=== PATIENT | female | born 1950 ===

== ENCOUNTER 2021-06-13 19:54 | Inpatient (IN) | payer OTHER ==
[~2021-06-13] VITALS: Ht 160 cm; Wt 97.5 kg
--- NOTE | 2021-06-13 20:02 | NUR ---
EKG DONE IN TRIAGE.
[2021-06-13] MEDS ORDERED: LISI-170 PO (20:37)
[2021-06-13 20:47] LABS: BASOPHILS % (AUTO) 1 % (0-1); EOSINOPHILS % (AUTO) 1 % (1-7); LYMPHOCYTES % (AUTO) 41 % (22-44); MEAN CORPUSCULAR HEMOGLOBIN 29.3 pg (27.0-34.8); MEAN CORPUSCULAR HGB CONC 34.2 g/dL (32.4-35.8); MEAN PLATELET VOLUME 7.9 fL (7.4-10.4); MONOCYTES % (AUTO) 15 % (2-9); NEUTROPHILS % (AUTO) 42 % (42-75); PLATELET COUNT 233 x10^3/uL (130-400); RED BLOOD COUNT 5.24 x10^6/uL (3.82-5.3)
--- NOTE | 2021-06-13 20:49 | NUR ---
PATIENT REPORTS CENTER CHEST PAIN THAT COMES AND GOES SINCE 10 AM TOADY. VS STABLE. MOUNTER CLARINETS ON. NSR NOTED. CALL LIGHT IN PLACE. WILL CONTINUE TO MONITOR.
[2021-06-13 20:56] LABS: ALANINE AMINOTRANSFERASE 49 U/L (12-78); ALBUMIN 3.5 g/dL (3.4-5.0); ANION GAP 7 mmol/L (5-15); CALCIUM 8.7 mg/dL (8.5-10.1); CHLORIDE 105 mmol/L (98-107); CREATININE 0.81 mg/dL (0.55-1.02)
[2021-06-13 21:00] LABS: ALKALINE PHOSPHATASE 127 U/L (45-117); BILIRUBIN,TOTAL 0.7 mg/dL (0.2-1.0); TOTAL PROTEIN 6.7 g/dL (6.4-8.2); TROPONIN I 0.073 ng/mL (0.000-0.045)
--- NOTE | 2021-06-13 21:54 | NUR ---
DR TAYLOR HAS UPDATED PATIENT. PT TO BE AN ADMIT.
[2021-06-13] MEDS ORDERED: NITROGLYCERIN 0.4 MG/SPRAY SL PRN (22:30)
[2021-06-13] MEDS ORDERED: morphine SULFATE 10 MG/ML, 1ML IV PRN (22:30)
[2021-06-13] MEDS ORDERED: morphine SULFATE 10 MG/ML, 1ML IVPush PRN (22:30)
[2021-06-13] MEDS ORDERED: BISACODYL 5 MG EC TABLET PO PRN (22:30)
[2021-06-13] MEDS ORDERED: ONDANSETRON 2MG/ML, 2ML IV PRN (22:30)
[2021-06-13] MEDS ORDERED: NITROGLYCERIN 0.4 MG BOTTLE (25 TABS) SL PRN (22:30)
--- NOTE | 2021-06-13 22:42 | NUR ---
PT HAS BEEN SEEN BY THE HOSPITALIST. PT RESTING IN ROOM. JOB PRINTER APPRENTICE ON. NSR NOTED. CALL LIGHT IN PLACE. WILL CONTINUE TO MONITOR .
--- NOTE | 2021-06-13 23:02 | NUR ---
PT REPORTS HER CHEST PAIN HAS RESOLVED. REPORT CALLED.
[2021-06-13 23:15] LABS: FREE T4 (FREE THYROXINE) 1.24 ng/dL (0.76-1.46)
[2021-06-13 23:17] VITALS: BP 137/87
[2021-06-14 01:34] LABS: TROPONIN I 0.112 ng/mL (0.000-0.045)
[2021-06-14] MEDS ORDERED: HEPARIN 5,000 UNITS/ML, 1ML IV ONE (02:00)
[2021-06-14] MEDS ORDERED: HEPARIN 5,000 UNITS/ML, 1ML IV PRN (02:00)
[2021-06-14] MEDS ORDERED: HEPARIN 25,000 UNITS/250ML PMX 250 ML IV PRN (02:00)
[2021-06-14 02:28] LABS: MEAN CORPUSCULAR HEMOGLOBIN 29.1 pg (27.0-34.8); MEAN CORPUSCULAR HGB CONC 34.1 g/dL (32.4-35.8); MEAN PLATELET VOLUME 8.2 fL (7.4-10.4); PLATELET COUNT 197 x10^3/uL (130-400); RED BLOOD COUNT 5.17 x10^6/uL (3.82-5.3); RED CELL DISTRIBUTION WIDTH 13.8 % (9.6-15.2)
[2021-06-14 02:29] LABS: ANION GAP 5 mmol/L (5-15); CALCIUM 8.6 mg/dL (8.5-10.1); CHLORIDE 107 mmol/L (98-107); CHOLESTEROL, TOTAL 174 mg/dL (140-239); CREATININE 0.62 mg/dL (0.55-1.02); TRIGLYCERIDES 91 mg/dL (50-200); VLDL CHOLESTEROL 18 mg/dL (0-25)
[2021-06-14 02:31] LABS: CHOL/HDL RATIO 3.5; HDL CHOL % 29 % (28-40); HDL CHOLESTEROL (DIRECT) 50 mg/dL (40-60); LDL CHOLESTEROL,CALCULATED 106 mg/dL (54-169); LDL/HDL RATIO 2.1 (0.5-3.0)
[2021-06-14 03:00] VITALS: BP 138/78
[2021-06-14] MEDS: ASPIRIN 81 MG TABLET EC PO SCH (05:20)
[2021-06-14 08:03] LABS: TROPONIN I 0.127 ng/mL (0.000-0.045)
[2021-06-14] MEDS: SODIUM CHLORIDE FLUSH 10ML SYR IVF SCH ×3 (08:08→22:08)
[2021-06-14 08:10] VITALS: BP 128/78
[2021-06-14 09:41] LABS: TROPONIN I 0.123 ng/mL (0.000-0.045)
[2021-06-14] MEDS: LISINOPRIL 20 MG TABLET PO SCH (11:29)
[2021-06-14] MEDS ORDERED: LEVO175T2 PO (11:33)
[2021-06-14] MEDS ORDERED: METF10007 PO (11:33)
[2021-06-14] MEDS ORDERED: ATOR20TA37 PO (11:33)
[2021-06-14] MEDS ORDERED: DEXTROSE 50%, 50ML SYRINGE IVPush PRN (14:00)
[2021-06-14] MEDS ORDERED: GLUCAGON 1 MG IM PRN (14:00)
[2021-06-14] MEDS ORDERED: DEXTROSE 4 GM TAB.CHEW PO PRN (14:00)
[2021-06-14 14:40] VITALS: BP 147/95
[2021-06-14] MEDS ORDERED: VERAPAMIL 2.5 MG/ML, 2ML ONE (15:19)
[2021-06-14] MEDS ORDERED: LIDOCAINE-MPF 1%, 5ML ONE (15:19)
[2021-06-14] MEDS ORDERED: MIDAZOLAM 1 MG/ML, 5ML ONE (15:19)
[2021-06-14] MEDS ORDERED: FENTANYL PF 100 MCG/2ML ONE (15:19)
[2021-06-14] MEDS ORDERED: TICAGRELOR 90 MG TABLET ONE (15:19)
[2021-06-14] MEDS ORDERED: BIVALIRUDIN 250 MG ONE (15:19)
[2021-06-14] MEDS ORDERED: HEPARIN 1,000 UNITS/ML, 10ML ONE (15:20)
[2021-06-14] MEDS: INSULIN LISPRO 100 UNITS/ML, PEN SQ-INSULIN SCH ×2 (15:59→20:16)
[2021-06-14] MEDS: CARVEDILOL 3.125 MG TABLET PO SCH (17:21)
[2021-06-14 19:30] VITALS: BP 122/80
[2021-06-14] MEDS ORDERED: ATORVASTATIN 80 MG TABLET PO SCH (21:00)
[2021-06-15 01:22] VITALS: BP 122/79
[2021-06-15] MEDS: ACETAMINOPHEN 325 MG TABLET PO PRN ×2 (01:22→10:31)
[2021-06-15 04:49] VITALS: BP 130/80
[2021-06-15] MEDS: ASPIRIN 81 MG TABLET EC PO SCH (04:50)
[2021-06-15] MEDS: CARVEDILOL 3.125 MG TABLET PO SCH (04:50)
[2021-06-15 05:17] LABS: BASOPHILS % (AUTO) 1 % (0-1); EOSINOPHILS % (AUTO) 3 % (1-7); LYMPHOCYTES % (AUTO) 34 % (22-44); MEAN CORPUSCULAR HEMOGLOBIN 29.7 pg (27.0-34.8); MEAN CORPUSCULAR HGB CONC 34.4 g/dL (32.4-35.8); MEAN PLATELET VOLUME 8.2 fL (7.4-10.4); MONOCYTES % (AUTO) 12 % (2-9); NEUTROPHILS % (AUTO) 50 % (42-75); PLATELET COUNT 218 x10^3/uL (130-400); RED BLOOD COUNT 5.19 x10^6/uL (3.82-5.3)
[2021-06-15 05:28] LABS: ANION GAP 5 mmol/L (5-15); CALCIUM 8.7 mg/dL (8.5-10.1); CHLORIDE 106 mmol/L (98-107)
[2021-06-15] MEDS ORDERED: LEVOTHYROXINE 175 MCG TABLET PO SCH (06:00)
[2021-06-15 06:58] VITALS: BP 117/76
[2021-06-15] MEDS: LISINOPRIL 20 MG TABLET PO SCH (08:12)
[2021-06-15] MEDS: SODIUM CHLORIDE FLUSH 10ML SYR IVF SCH ×2 (08:13)
[2021-06-15] MEDS: INSULIN LISPRO 100 UNITS/ML, PEN SQ-INSULIN SCH ×2 (08:16→11:14)
[2021-06-15] MEDS ORDERED: ASPI81TA45 PO (12:10)
[2021-06-15] MEDS ORDERED: ATOR40TA78 PO (12:10)
[2021-06-15] MEDS ORDERED: CARV3.1212 PO (12:10)
[2021-06-15] MEDS ORDERED: ATORVASTATIN 80 MG TABLET PO SCH (21:00)
== END 2021-06-15 13:30 | disposition home or self-care (01) | DRG 282 ==
LOC: ED 22:12 → INTOOBSV 22:33 → EDIP 22:33 → 5SO 23:06 → OBSVTOIN 06-14 13:26
PROVIDERS: ADMIT Internal Medicine; ATTEND Internal Medicine
PROC: 4A023N7 Measurement of Cardiac Sampling and Pressure, Left Heart, Percutaneous Approach (ICD-10-PCS; principal; 2021-06-14)
PROC: 5A1D70Z Performance of Urinary Filtration, Intermittent, Less than 6 Hours Per Day (ICD-10-PCS; 2021-06-14)
PROC: B2111ZZ Fluoroscopy of Multiple Coronary Arteries using Low Osmolar Contrast (ICD-10-PCS; 2021-06-14)
PROC: B2151ZZ Fluoroscopy of Left Heart using Low Osmolar Contrast (ICD-10-PCS; 2021-06-14)
DX: I21.4 Non-ST elevation (NSTEMI) myocardial infarction (principal); I25.10 Atherosclerotic heart disease of native coronary artery without angina pectoris; K21.9 Gastro-esophageal reflux disease without esophagitis; Z66 Do not resuscitate; Z96.652 Presence of left artificial knee joint; E66.01 Morbid (severe) obesity due to excess calories; E78.5 Hyperlipidemia, unspecified; F19.10 Other psychoactive substance abuse, uncomplicated; I10 Essential (primary) hypertension; E11.65 Type 2 diabetes mellitus with hyperglycemia; E03.9 Hypothyroidism, unspecified; Z68.37 Body mass index [BMI] 37.0-37.9, adult; Z79.899 Other long term (current) drug therapy; Z86.718 Personal history of other venous thrombosis and embolism; Z87.891 Personal history of nicotine dependence; Z90.49 Acquired absence of other specified parts of digestive tract; Z90.710 Acquired absence of both cervix and uterus; Z79.891 Long term (current) use of opiate analgesic; Z79.01 Long term (current) use of anticoagulants; Z90.722 Acquired absence of ovaries, bilateral; Z79.84 Long term (current) use of oral hypoglycemic drugs
CPT/HCPCS: 36415; 71045; 80048; 80053; 80061; 82962; 83036; 83880; 84439; 84443; 84484; 85025; 85027; 85379; 85520; 93005; 93458; 96374; 96375; 99156; C1769; C1894; G0378; J0583; J1644; J2250; J3010; Q9967